=== PATIENT | male | born 1965 | race Hispanic/Latino ===

== ENCOUNTER 2017-01-11 19:10 | Emergency (ER) | payer SELFPAY ==
[2017-01-11 19:44] LABS: Urine Drugs of Abuse Note Disclamer
[2017-01-11 20:06] LABS: Bilirubin,Urine NEG (Negative); Blood,Urine NEG (Negative); Ketones,Urine NEG (Negative); Leukocyte Esterase,Urine NEG (Negative); Mucus,Urine FEW /HPF; Nitrite,Urine NEG (Negative); Urobilinogen,Urine < 2.0 mg/dL (<2.0); WBC,Urine < 1.0 /HPF (0.0-6.0)
[2017-01-11 20:06] LABS: Basophils % (Auto) 0.5 % (0.0-1.8); Eosinophils % (Auto) 0.9 % (0.0-4.3); Hemoglobin 12.6 gm/dl (11.8-15.2); Mean Corpuscular HGB Conc 33 % (32-34); Mean Corpuscular Hemoglobin 29 pg (28-32); Mean Corpuscular Volume 88 fl (84-94); Platelet Count 251 K/mm3 (140-440); Red Blood Count 4.33 M/mm3 (3.65-5.03); Red Cell Distribution Width 13.6 % (13.2-15.2)
[2017-01-11 20:21] LABS: Anion Gap 16 mmol/L; BUN/Creatinine Ratio 29; Blood Urea Nitrogen 20 mg/dL (9-20); Calcium 8.6 mg/dL (8.4-10.2); Carbon Dioxide 27 mmol/L (22-30); Chloride 90.8 mmol/L (98-107); Creatine Kinase 26 units/L (55-170); Sodium 130 mmol/L (137-145)
[2017-01-11 20:47] LABS: Glucose 606 mg/dL (75-100)
[2017-01-11] MEDS ORDERED: NACL 0.9% 1000 ML 1,000 ML IV ONE (22:56)
[2017-01-11] MEDS ORDERED: CLEOCIN 900 MG/50 mL 900 MG/50 ML BAG IV ONE (22:57)
[2017-01-11] MEDS ORDERED: MORPHINE IV ONE (23:00)
--- NOTE | 2017-01-11 23:05 | Emergency Department Report ---
HPI - General Chief Complaint: Hyperglycemia Time Seen by Provider: 01/11/17 22:41 - HPI HPI: This is a 51-year-old male presents to the emergency department originally with the complaint of pain and swelling to the upper lip that has been going on for the past few days that started off as a pimple or ingrown hair. He was found to triage to have elevated blood sugar. He does have a history of [id number]-[id number] diabetes and used to be on metformin but has not taken this medication about one year as he ran out and does not have a primary care physician for follow-up. He does admit to increased thirst and increased urination but he denies any chest pain, fever, nausea, vomiting or shortness of breath. He has a tobacco smoker. He has not taken anything for symptoms without presentation. No recent travel or sick contacts at home. He also has a past medical history of hypertension, coronary artery disease with ND. ED Past Medical Hx - Past Medical History Previous Medical History?: Yes Hx Hypertension: Yes Hx Heart Attack/AMI: Yes Hx Diabetes: Yes Additional medical history: CAD - Surgical History Past Surgical History?: Yes Hx Open Heart Surgery: Yes Additional Surgical History: Right hand surgery - Social History Smoking Status: Current Every Day Smoker Substance Use Type: None - Medications Home Medications: Home Medications Medication Instructions Recorded Confirmed Last Taken Type Sulfamethoxazole/Trimethoprim 1 each PO BID #14 tablet 01/12/17 Unknown Rx [Bactrim DS TAB] metFORMIN [Glucophage] 500 mg PO BID #60 tablet 01/12/17 Unknown Rx ED Review of Systems ROS: Stated complaint: BLOOD SUGAR ELEVATED AND LIP SORE Other details as noted in HPI Comment: All other systems reviewed and negative Constitutional: denies: chills, fever Eyes: denies: eye pain, eye discharge, vision change ENT: denies: ear pain, throat pain Respiratory: denies: cough, shortness of breath, wheezing Cardiovascular: denies: chest pain, palpitations Endocrine: increased thirst, increased urine Gastrointestinal: denies: abdominal pain, nausea, diarrhea Genitourinary: frequency. denies: dysuria Musculoskeletal: denies: back pain, joint swelling, arthralgia Skin: other (lip swelling, ulcer). denies: rash Neurological: denies: headache, weakness, paresthesias Physical Exam - Physical Exam Vital Signs: Vital Signs 01/11/17 01/11/17 19:21 22:50 Temperature 98.8 F 98.9 F Pulse Rate 84 76 Respiratory 18 15 Rate Blood Pressure 146/88 Blood Pressure 164/88 [Left] O2 Sat by Pulse 97 99 Oximetry Physical Exam: GENERAL: The patient is well-developed well-nourished. HENT: Normocephalic. Atraumatic. Patient has moist mucous membranes. Oropharynx is clear. The patient does not have any teeth. The upper lip is swollen with a area of fluctuance to the middle left portion and a pustule that is facing downward at all appears consistent with a lip abscess. EYES: Extraocular motions are intact. Pupils equal reactive to light bilaterally. NECK: Supple. Trachea is midline. CHEST/LUNGS: Clear to auscultation. There is no respiratory distress noted. HEART/CARDIOVASCULAR: Regular. There is no tachycardia. There is no gallop rub or murmur. ABDOMEN: Abdomen is soft, nontender. Patient has normal bowel sounds. There is no abdominal distention. SKIN: Skin is warm and dry. NEURO: The patient is awake, alert, and oriented. The patient is cooperative. The patient has no focal neurologic deficits. The patient has normal speech. MUSCULOSKELETAL: There is no tenderness or deformity. There is no limitation range of motion. There is no evidence of acute injury. ED Course Vital Signs 01/11/17 01/11/17 19:21 22:50 Temperature 98.8 F 98.9 F Pulse Rate 84 76 Respiratory 18 15 Rate Blood Pressure 146/88 Blood Pressure 164/88 [Left] O2 Sat by Pulse 97 99 Oximetry ED Medical Decision Making - Lab Data Result diagrams: 01/11/17 19:47 01/11/17 19:47 - EKG Data -: EKG Interpreted by [facility] EKG shows normal: sinus rhythm, axis, intervals, QRS complexes, ST-T waves ( there are some T-wave inversions to the lateral leads) Rate: normal - EKG Data When compared to previous EKG there are: previous EKG unavailable Interpretation: other (sinus rhythm, normal intervals, T-wave inversions to the lateral leads) - Medical Decision Making 51-year-old male presents with the complaint of some pain and swelling to the left upper lip. On physical exam and appears that he has an abscess. However, there does appear to be a small pustule and an opening to this abscess. He allowed me to squeeze the area and there was some expression of purulence but not a complete drainage. The patient also presents with elevated blood sugar. He says that he knows because he has some intermittent dizziness. He has been noncompliant with his medication for over a year. The patient later tells me that he is homeless and therefore has not been able to afford the medications and does not have a primary care physician. His blood sugar was up around 600. There is no elevated anion gap or any venous acidosis. The serum osmolality was checked and was about 309. This is certainly elevated blood sugar but it does not appear consistent with diabetic ketoacidosis and is not definitively HHNK. He was given 1 L of IV fluid and 1 dose of IV insulin and his blood sugar came down to about 200. The patient says that he is feeling improved and no longer has any of the dizziness. Vital signs stable throughout his ED course. He was given a dose of antibiotics here for the lip abscess. The patient will be discharged with Bactrim for the abscess and metformin for his diabetes. He has been explained that both of these medications are free at [facility]. We discussed using a warm compress to the lip to try and express as much infection is possible. He was given multiple referrals for primary care clinics. We discussed dietary changes to make to help with his diabetes. He has been encouraged to return to the emergency Department with any worsening of symptoms or any acute distress. - Differential Diagnosis lip abscess, DKA, HHNK, herpes simplex Critical Care Time: No Critical care attestation.: If time is entered above; I have spent that time in minutes in the direct care of this critically ill patient, excluding procedure time. ED Disposition Clinical Impression: Noncompliance with medication regimen, Lip abscess, Hyperglycemia Disposition: DC-01 TO HOME OR SELFCARE Is pt being admited?: No Condition: Stable Instructions: Abscess (ED), Diabetic Hyperglycemia (ED) Additional Instructions: Please follow up with a primary care physician in the next few days. Return to the emergency Department with any worsening of your symptoms or any acute distress. I am restarting you on your metformin. I am placing you on an antibiotic for your lip abscess. Both of these medications can be obtained free at [facility]. Try and use a warm, but not hot, compress against the lip to try and express more infection. Try and stay away from foods that are high in sugar, carbohydrates and starches to help with your blood sugar. Keep a blood sugar log. Prescriptions: metFORMIN [Glucophage] 500 mg PO BID #60 tablet Sulfamethoxazole/Trimethoprim [Bactrim DS TAB] 1 each PO BID #14 tablet Referrals: [facility] [Outside] - 3-5 Days [facility] [Outside] - 3-5 Days [facility] [Outside] - 3-5 Days [facility] [Outside] - 3-5 Days Time of Disposition: 03:10
[2017-01-12 03:29] VITALS: BP 124/80
== END 2017-01-12 03:45 | disposition home or self-care (01) ==
LOC: ED 19:10
DX: E11.65 Type 2 diabetes mellitus with hyperglycemia (principal); K13.0 Diseases of lips; I10 Essential (primary) hypertension; I25.2 Old myocardial infarction; I25.10 Atherosclerotic heart disease of native coronary artery without angina pectoris; F17.200 Nicotine dependence, unspecified, uncomplicated; Z91.14 Patient's other noncompliance with medication regimen; Z98.890 Other specified postprocedural states
CPT/HCPCS: 36415; 80048; 80307; 81001; 82550; 82553; 82805; 82962; 83930; 84484; 85025; 93005; 93010; 96361; 96374; 96375; 99284; G0480; J2270; J7030; 80320; J1815

== ENCOUNTER 2018-06-21 20:55 | Emergency (ER) | payer MEDICAID, OTHER ==
[~2018-06-21 20:55] MED LIST: ADRENALIN ONE; CALCIUM CHLORIDE IV ONE
--- NOTE | 2018-06-21 21:15 | Emergency Department Report ---
ED CPR HPI - General Chief Complaint: Cardiac Arrest/CPR Stated Complaint: CARDIAC ARREST Time Seen by Provider: 06/21/18 21:11 Source: EMS (verbal report received from EMS.ems notes not available at time of chart dictation), RN notes reviewed Mode of arrival: Stretcher Limitations: Altered Mental Status - History of Present Illness Initial Comments: This is a 52-year-old gentleman, brought to the hospital by emergency medical services as an out of hospital cardiac arrest. As per verbal report from EMS, patient collapsed in front of family. His family is not currently available at this time for collateral information. It is not known if the family provided CPR. EMS verbally estimates that it took on for minutes to respond to the call. They verbally reports that upon their arrival, the patient was pulseless, without a shockable rhythm, and not breathing. EMS placed endotracheal tube. Mechanical chest compressions are initiated. A left lower extremity intraosseous line is started. Patient receives standard ACLS medications by EMS. EMS estimates approximately 20 minutes had elapsed prior to arrival to the emergency room. In the emergency room, the patient is pulseless. His pupils are fixed and dilated. His rhythm is not a shockable rhythm. Standard ACLS protocol was followed. Patient receives standard ACLS medi cations. Patient has multiple pulse checks. At no point in time does he developed a shockable rhythm. Patient's rhythm is either asystole, with intermittent sporadic beats of pulseless electrical activity. Resuscitation efforts are thus terminated secondary to prolonged down time, and medical futility. MD Complaint: collapsed during activity -: minute(s) Place: home Initial Findings in the Field: no pulse, PEA Treatments Prior to Arrival: intubation, chest compressions, epinephrine mgs # - Related Data Previous Rx's Medication Instructions Recorded Last Taken Type Acetaminophen [Acetaminophen TAB] 650 mg PO Q4H PRN #15 tablet 02/07/18 Unknown Rx Furosemide [Lasix TAB] 40 mg PO BID #60 tablet 02/07/18 Unknown Rx HYDROcodone/APAP 5-325 [[place] 1 each PO Q6H PRN #15 tablet 02/07/18 Unknown Rx 5-325 mg TAB] Lispro Insulin [Humalog] 1 dose SUB-Q ACHS PRN #100 units 02/07/18 Unknown Rx Losartan [Cozaar] 100 mg PO QDAY #30 tablet 02/07/18 Unknown Rx Metoprolol [Lopressor TAB] 50 mg PO BID #60 tablet 02/07/18 Unknown Rx amLODIPine [Norvasc] 10 mg PO QDAY #30 tablet 02/07/18 Unknown Rx metOLazone [Zaroxolyn] 5 mg PO QDAY #30 tablet 02/07/18 Unknown Rx Allergies Allergy/AdvReac Type Severity Reaction Status Date / Time No Known Allergies Allergy Unverified 12/21/14 21:06 ED Review of Systems ROS: Stated complaint: CARDIAC ARREST Other details as noted in HPI Comment: Unobtainable due to pts medical conditions ED Past Medical Hx - Past Medical History Previous Medical History?: Yes Hx Hypertension: Yes Hx Heart Attack/AMI: Yes Hx Congestive Heart Failure: Yes Hx Diabetes: Yes Hx Asthma: No Hx COPD: No Additional medical history: CAD - Surgical History Past Surgical History?: Yes Hx Open Heart Surgery: Yes (CABG 2010) Additional Surgical History: Right hand surgery, Recent amputated toes on the left foot, right lower leg wound - Social History Smoking Status: Former Smoker - Medications Home Medications: Home Medications Medication Instructions Recorded Confirmed Last Taken Type Acetaminophen [Acetaminophen TAB] 650 mg PO Q4H PRN #15 tablet 02/07/18 Unknown Rx Furosemide [Lasix TAB] 40 mg PO BID #60 tablet 02/07/18 Unknown Rx HYDROcodone/APAP 5-325 [[place] 1 each PO Q6H PRN #15 tablet 02/07/18 Unknown Rx 5-325 mg TAB] Lispro Insulin [Humalog] 1 dose SUB-Q ACHS PRN #100 units 02/07/18 Unknown Rx Losartan [Cozaar] 100 mg PO QDAY #30 tablet 02/07/18 Unknown Rx Metoprolol [Lopressor TAB] 50 mg PO BID #60 tablet 02/07/18 Unknown Rx amLODIPine [Norvasc] 10 mg PO QDAY #30 tablet 02/07/18 Unknown Rx metOLazone [Zaroxolyn] 5 mg PO QDAY #30 tablet 02/07/18 Unknown Rx ED Physical Exam - General Limitations: Altered Mental Status General appearance: other (patient is intubated, and nonverbal) - Head Head exam: Present: atraumatic - Eye Eye exam: Present: other (the pupils are fixed and dilated) - ENT ENT exam: Present: other (endotracheal tube is noted in the oropharynx) - Respiratory Respiratory exam: Present: other (no breath sounds, unless [id number] ventilation is applied) - Cardiovascular Cardiovascular Exam: Absent: regular rate (the patient is pulseless) - GI/Abdominal GI/Abdominal exam: Present: distended - exam: Present: normal inspection External exam: Present: normal external exam - Extremities Exam Extremities exam: Present: other (intraosseous line noted in the left lower extremity. Chronic venous stasis changes are noted. Wound dressings noted on the bilateral lower extremities) - Back Exam Back exam: Present: normal inspection - Neurological Exam Neurological exam: Present: other (the patient is nonverbal) - Psychiatric Psychiatric exam: Present: other (the patient is nonverbal) - Skin Skin exam: Present: dry ED Medical Decision Making - Medical Decision Making Differential diagnosis, including but not limited to: Acute coronary syndrome, sepsis, bacteremia, pulmonary embolus, intracranial hemorrhage, acidosis Critical care attestation.: If time is entered above; I have spent that time in minutes in the direct care of this critically ill patient, excluding procedure time. ED Disposition Clinical Impression: Cardiac arrest Disposition: DC-20 Is pt being admited?: No Does the pt Need Aspirin: No Condition: Undetermined
== END 2018-06-21 21:00 ==
LOC: ED 20:55
DX: I46.9 Cardiac arrest, cause unspecified (principal); I11.0 Hypertensive heart disease with heart failure; I50.9 Heart failure, unspecified; E11.9 Type 2 diabetes mellitus without complications; Z95.1 Presence of aortocoronary bypass graft; Z87.891 Personal history of nicotine dependence; Z89.432 Acquired absence of left foot
CPT/HCPCS: 31500; 92950; 99285; J0171